=== PATIENT | male | born 2000 | race Caucasian/White ===

== ENCOUNTER 2025-05-30 08:06 | Day surgery (SDC) | payer OTHER ==
[~2025-05-30] VITALS: Ht 175.3 cm; Wt 79.9 kg
[2025-05-30] MEDS ORDERED: KETOROLAC 30 MG/ML 1 ML VIAL As Ordered ONE (08:08)
[2025-05-30] MEDS ORDERED: SUGAMMADEX SODIUM 500 MG/5 ML VIAL As Ordered ONE (08:08)
[2025-05-30] MEDS ORDERED: LIDOCAINE 2% 100 MG/5 ML SDV (FOR ANES.) As Ordered ONE (08:08)
[2025-05-30] MEDS ORDERED: ROCURONIUM BROMIDE 50MG/5ML VIAL As Ordered ONE (08:08)
[2025-05-30] MEDS ORDERED: MIDAZOLAM INJ 2 MG/2 ML VIAL As Ordered ONE (08:08)
[2025-05-30] MEDS ORDERED: dexAMETHasone 4 MG/ML 1 ML VIAL As Ordered ONE (08:09)
[2025-05-30] MEDS ORDERED: ONDANSETRON 4MG 2ML VIAL As Ordered ONE (08:09)
[2025-05-30] MEDS ORDERED: ACETAMINOPHEN 1000MG/100ML IV BAG As Ordered ONE (08:09)
[2025-05-30] MEDS ORDERED: LR 1,000 ML IV SCH ×2 (08:20→11:45)
[2025-05-30] MEDS ORDERED: IBUP-1114 PO (08:51)
[2025-05-30] MEDS: ceFAZolin SOD 2 GM IV ONCE IV ONE (10:15)
[2025-05-30] MEDS ORDERED: ONDANSETRON 4MG 2ML VIAL IV PRN (11:45)
[2025-05-30] MEDS: HYDROMORPHONE HCL 0.5 MG/0.5 ML SYRINGE IV PRN (12:17)
[2025-05-30 14:00] VITALS: BP 108/65; TEMP 97.2; O2SAT 96
== END 2025-05-30 14:30 | disposition home or self-care (01) ==
LOC: M SDC 08:06
PROVIDERS: ATTEND Surgery
DX: K40.90 Unilateral inguinal hernia, without obstruction or gangrene, not specified as recurrent (principal)
CPT/HCPCS: 49650; C1781; J0131; J0665; J0690; J1100; J1171; J1885; J2250; J2405; J3010; S2900